=== PATIENT | female | born 1995 | race Caucasian/White ===

== ENCOUNTER 2018-04-06 14:31 | Inpatient (IN) | payer OTHER ==
[~2018-04-06] VITALS: Ht 170.2 cm; Wt 79.4 kg
[2018-04-06 17:05] LABS: ABSOLUTE BASOPHIL COUNT 0 /CUMM (0.0-0.2); ABSOLUTE EOSINOPHIL COUNT 0 /CUMM (0.0-0.7); ABSOLUTE GRANULOCYTE CT 13.3 /CUMM (1.4-6.5); ABSOLUTE LYMPH COUNT 1.2 /CUMM (1.2-3.4); ABSOLUTE MONOCYTE COUNT 1.4 /CUMM (0.10-0.60); BASOPHIL % 0 % (0.0-2.0); EOSINOPHIL % 0.2 % (0-5); GRANULOCYTE % 83.4 % (42.2-75.2); HEMATOCRIT 37.8 % (37-47); MEAN CORPUSCULAR HGB 30.7 PG (27.0-31.0); MEAN CORPUSCULAR HGB CONC 33.3 G/DL (33.0-37.0); MEAN PLATELET VOLUME 9.6 FL (7.4-10.4); PLATELET COUNT 208 /CUMM (130-400); RBC DISTRIBUTION WIDTH 13.3 % (11.5-14.5); RED BLOOD CELL CT 4.11 /CUMM (4.20-5.40)
--- NOTE | 2018-04-06 21:22 | History & Physical Pre-Op ---
General Information and HPI MD Statement: I have seen and personally examined SINA ACKERMAN and documented this H &P. The patient is a 22 year old F who presented with a patient stated chief complaint of [LOF]. History of Present Illness: 22yo G1 EDC 04/17/18 at 38+weeks gestation with c/o LOF. Occasional UC; good FM. care complete and remarkable for transfer of care at 32 weeks gestation and + GBS bacteruria. Allergies/Medications Allergies: Coded Allergies: tetracycline (hives 04/06/18) Past History Surgical History Pertinent Surgical History: none Past Family/Social History Psychosocial History Smoking Status: Never Smoked Review of Systems Review of Systems Constitutional: Reports: no symptoms. EENTM: Reports: nasal congestion. Cardiovascular: Reports: no symptoms. Respiratory: Reports: no symptoms. GI: Reports: no symptoms. Genitourinary: Reports: see HPI. Musculoskeletal: Reports: no symptoms. Skin: Reports: no symptoms. Neurological/Psychological: Reports: no symptoms. Hematologic/Endocrine: Reports: no symptoms. Immunologic/Allergic: Reports: no symptoms. All Other Systems: Reviewed and Negative Exam & Diagnostic Data Last 24 Hrs of Vital Signs/I&O Intake & Output 04/06 1600 06/16 0800 /16 0000 Intake Total Output Total Balance Patient 175 lb Weight Physical Exam: HEENT: NCAT Chest: CTA CV: nl S1S2 Abd: gravid, cepahalic, EFW 6.5 Cx: FT Ext: no c/c/e Neuro: nonfocal Assessment/Plan Assessment/Plan: 38weeks PROM Positive GBS Poor Blancas Score IV PCN Misoprostil cervical ripening As Ranked By This Provider Problem List: 1.
--- NOTE | 2018-04-06 23:58 | PN- Obstetrical ---
Subjective Subjective: NO C/O Review of Systems: S/P EPIDURAL Objective Last 24 Hrs of Vital Signs/I&O Intake & Output 04/06 1600 / 0800 04/06 0000 Intake Total Output Total Balance Patient 175 lb Weight Physical Exam: FHR 120 CAT 1 UC Q2-4 Cx: 3/90/-1 Obstetric Exam Dilation (cm): 3 Effacement (%): 90 Station: -1 Membranes: SROM Fluid: clear Multiple Gestation? No Contractions: Q2 Assessment/Plan Assessment/Plan NO FURTERH DILATION PLACE IUPC PITOCIN
[2018-04-07 03:58] VITALS: BP 133/80
--- NOTE | 2018-04-07 04:56 | Labor & Delivery Summary ---
Delivery Summary Vaginal Delivery: Vaginal: vertex Episiotomy/Lacerations: Episiotomy/Lacerations: EPIS Type: RML Repair: 3-0 LAYERED Anesthesia: EPI.LOCAL Placenta: Placenta: spontanteous, normal, 3 vessel Anesthesia: EPI Baby's Weight: P STS Apgars - 1 Min: 9 Apgars - 5 Min: 9
[2018-04-08 07:52] LABS: ABSOLUTE BASOPHIL COUNT 0 /CUMM (0.0-0.2); ABSOLUTE EOSINOPHIL COUNT 0.1 /CUMM (0.0-0.7); ABSOLUTE GRANULOCYTE CT 9.7 /CUMM (1.4-6.5); ABSOLUTE LYMPH COUNT 2.5 /CUMM (1.2-3.4); ABSOLUTE MONOCYTE COUNT 1.2 /CUMM (0.10-0.60); BASOPHIL % 0.2 % (0.0-2.0); EOSINOPHIL % 0.6 % (0-5); GRANULOCYTE % 72.1 % (42.2-75.2); HEMATOCRIT 35.6 % (37-47); MEAN CORPUSCULAR VOLUME 91.1 FL (81.0-99.0); MEAN PLATELET VOLUME 9.8 FL (7.4-10.4); PLATELET COUNT 188 /CUMM (130-400); RBC DISTRIBUTION WIDTH 13.7 % (11.5-14.5); RED BLOOD CELL CT 3.91 /CUMM (4.20-5.40); WHITE BLOOD CELL COUNT 13.5 /CUMM (4.8-10.8)
--- NOTE | 2018-04-09 09:00 | PN- Post Delivery/GYN ---
Subjective Subjective: feels well Review of Systems: Tmax 101 last pm Objective Last 24 Hrs of Vital Signs/I&O Vital Signs Date Time Temp Pulse Resp B/P B/P Pulse O2 O2 Flow FiO2 Mean Ox Delivery Rate 04/09 0513 96.8 04/09 0320 97.1 04/09 0125 100.3 04/09 0124 100.3 04/09 0007 101.0 Physical Exam: ff ext nt Assessment/Plan Assessment/Plan s/p ppd2 sinusitis discharge home Problem List: 1.
[2018-04-09] MEDS ORDERED: IBUPROFEN800 M1 PO (09:04)
[2018-04-09] MEDS ORDERED: DOCUSATE SODIU100 M3 PO (09:04)
== END 2018-04-09 11:55 | DRG 560 ==
LOC: CBCO 14:31 → GNO 15:22
PROVIDERS: Obstetrics & Gynecology
PROC: 3E0P7VZ Introduction of Hormone into Female Reproductive, Via Natural or Artificial Opening (ICD-10-PCS; principal; 2018-04-06)
PROC: 10E0XZZ Delivery of Products of Conception, External Approach (ICD-10-PCS; principal; 2018-04-06)
PROC: 0W8NXZZ Division of Female Perineum, External Approach (ICD-10-PCS; principal; 2018-04-06)
PROC: 0HQ9XZZ Repair Perineum Skin, External Approach (ICD-10-PCS; principal; 2018-04-06)
DX: O70.9 Perineal laceration during delivery, unspecified (principal); Z3A.38 38 weeks gestation of pregnancy; Z37.0 Single live birth; O99.824 Streptococcus B carrier state complicating childbirth; Z88.1 Allergy status to other antibiotic agents
CPT/HCPCS: GNOP; GNOS; 81001; 84112; 87086; G0463; J0131; J1200; J1580; J7120